=== PATIENT | female | born 1960 | race Two or more races ===

== ENCOUNTER → 2016-06-13 | Day surgery (SDC) | payer BC, MEDICARE ==
[~2016-06-13] VITALS: Ht 154.9 cm; Wt 45.9 kg
[~2016-06-13] MED LIST: ALL DAY ALLERGY10 M3 PO; ASMANEX220 MC1 INH; ASPIRIN EC81 MG PO; ATIVAN 0.5MG0.5 MG PO; ATROVENT I0.5 MG/2.5 INH; CALCIUM CARBON600 MG PO; CARTIA XT180 MG PO; CIPRO500 MG PO; CLARITIN10 MG PO; COMBIVENT RESPIM4 GM INH; DELTASONE10 MG PO; DELTASONE5 MG PO; DITROPAN XL5 MG PO; FLOMAX0.4 MG PO; FOSAMAX70 MG PO; IPRAT-ALBUT 0.5-3 ML INH; K-TAB 10MEQ10 MEQ PO; KLONOPIN0.5 MG PO; LEVAQUIN 750 M750 MG PO; MIRALAX17 GM PO; MUCINEX1200 MG PO; NORCO 10-325 T1 EACH PO; NORCO 5-325 MG1 TAB PO; OMNICEF 300MG300 MG PO; OXYGEN M-15 INH; UROCIT-K15 MEQ PO; VITAMIN D-32000 UNI1 PO; ZOFRAN4 MG PO
--- NOTE | ~2016-06-13 | OR ---
PATIENT'S NAME: LORETA GONZALEZ [facility] AGE: 56 Y [address] ROOM: [place] [id number] LOCATION: [facility] [place] ADMIT DATE: 06/13/2016 OR/Procedure Report DISCHARGE DATE: FAMILY PHYSICIAN: Bridgette Blanc MD ATTENDING PHYSICIAN: KY LEBLANC SURGEON: Ky Leblanc MD SENIOR MECHANICAL ENGINEER: None. DATE OF PROCEDURE: 06/13/2016 PREOPERATIVE DIAGNOSIS: Proximal right ureteral calculus. POSTOPERATIVE DIAGNOSIS: Proximal right ureteral calculus. PROCEDURES PERFORMED: 1. Right ureteroscopy. 2. Laser lithotripsy. 3. Ureteroscopic stone extraction. 4. Cystoscopy with placement of indwelling right ureteral stent. ANESTHESIA ADMINISTERED: Monitored anesthesia care. INDICATIONS FOR PROCEDURE: The patient is a pleasant, 56-year-old female with history of recurrent nephrolithiasis who had presented with right flank pain and underwent a CT scan of her abdomen and pelvis on June 07, 2016, with findings consistent with a 10 mm obstructing right proximal ureteral calculus. The patient was explained the risks, benefits, indications, and alternatives to the above procedures, wished to proceed, and consented freely. DESCRIPTION OF OPERATION: The patient was brought back to the operating room. She was placed on the OR table in the supine position. A surgical time-out was called where patient identification, surgical site, and procedures were then verified. We also did verify that the patient received an IV Levaquin antibiotic within an hour of beginning the procedure. The patient then underwent successful administration of monitored anesthesia care. The patient was then moved and placed in a low lithotomy position. She was then prepped and draped in the usual sterile fashion. I began by advancing a rigid cystoscope easily into the patient's urinary bladder. Her urethra was within normal limits. Pancystoscopy was performed, and her bladder was negative for any bladder tumors, cellules, or diverticula. Her ureteral orifices were noted to be in their orthotopic locations. I then carefully advanced a Sensor guidewire, navigating the wire up her right ureter and ultimately past the ureteral calculus. Then, alongside the wire, I advanced a semi-rigid ureteroscope, carefully navigating up to the proximal right ureteral stone. The stone did appear to be too large to extract in whole, and so I utilized the 600 micron holmium laser fiber to carefully fragment the stone into PATIENT'S NAME: LORETA GONZALEZ [facility] AGE: 56 Y [address] ROOM: [place] [address] LOCATION: [facility] [place] ADMIT DATE: 06/13/2016 OR/Procedure Report DISCHARGE DATE: FAMILY PHYSICIAN: Bridgette Blanc MD ATTENDING PHYSICIAN: KY LEBLANC smaller fragments. Two large fragments did migrate proximally back up into the kidney. There were no residual stones now within the ureter. I then withdrew the rigid ureteroscope and left a second guidewire in place, now having [address]. Then, over the second guidewire, I advanced a ureteral access sheath, carefully advancing it up to the patient's proximal right ureter. I then removed the inner cannula to the access sheath and then advanced a flexible ureteroscope up into the kidney. I then used the 270 micron laser fiber to carefully fragment the remaining fragments within the kidney. I also used the Zero Tip stone basket to debulk some of the larger fragments. We did not send any stone for analysis given previous stone analyses had already been performed. Once I was complete, there was no evidence of any large residual fragments, and all fragments remaining appeared to be 1 mm in size or smaller. I then carefully removed the ureteroscope and access sheath, and there was no evidence of any ureteral stones remaining, nor was there any evidence of any ureteral injury. Then, over the remaining wire, I advanced a 4.8-Vietnamese multi-length ureteral stent, deploying it, noting a good curl fluoroscopically in the patient's right renal pelvis as well as a good curl fluoroscopically in the patient's bladder. I then emptied the patient's bladder. The patient was then taken out of the lithotomy position where she was then awoken from monitored anesthesia care, transferred to the recovery bed, and transported to the recovery room in good condition. COMPLICATIONS: None. SPECIMENS: None. ESTIMATED BLOOD LOSS: Minimal. DRAINS: Indwelling 4.8-Vietnamese multi-length right ureteral stent. FOLLOWUP PLAN: We will plan to have the patient back for followup in [facility] in approximately 2 to 4 weeks with a plain film KUB and possible stent removal at that time. She will also be due ultimately for a repeat 24-hour urinalysis to see if we need to switch up any of her medications including her current dosing of potassium citrate. KY LEBLANC MD GP/natalie /[id number] PATIENT'S NAME: LORETA GONZALEZ [facility] AGE: 56 Y [address] ROOM: [place] [address] LOCATION: [facility] [place] ADMIT DATE: 06/13/2016 OR/Procedure Report DISCHARGE DATE: FAMILY PHYSICIAN: Bridgette Blanc MD ATTENDING PHYSICIAN: KY LEBLANC CC: Bridgette Blanc MD d: 06/13/16 1340 t: 06/16/16 1112, OPERATIVE SUMMARY
== END | disposition disaster alternative care site (69) ==
LOC: GPOC 06-09 16:00 → GSDC 08:06
PROC: 0TF68ZZ Fragmentation in Right Ureter, Via Natural or Artificial Opening Endoscopic (ICD-10-PCS; principal; 2016-06-13)
PROC: 0T768DZ Dilation of Right Ureter with Intraluminal Device, Via Natural or Artificial Opening Endoscopic (ICD-10-PCS; 2016-06-13)
DX: N20.1 Calculus of ureter (principal); J44.9 Chronic obstructive pulmonary disease, unspecified; J20.9 Acute bronchitis, unspecified; K21.9 Gastro-esophageal reflux disease without esophagitis; E87.6 Hypokalemia; M81.0 Age-related osteoporosis without current pathological fracture; Z88.2 Allergy status to sulfonamides; Z87.891 Personal history of nicotine dependence
CPT/HCPCS: C1769; C1894; C2617; J1956; J2001; J7030

== ENCOUNTER → 2016-07-08 | Outpatient (CLI) | payer BC, MEDICARE | END | disposition disaster alternative care site (69) | LOC: GRAD 11:18 | DX: Z48.89 Encounter for other specified surgical aftercare (principal); Z96.0 Presence of urogenital implants ==